=== PATIENT | male | born 1970 | race Caucasian/White ===

== ENCOUNTER 2016-10-22 04:27 | Day surgery (SDC) | payer BC ==
[2016-10-19 18:36] LABS: HEMATOCRIT 41.2 % (40.0-51.0); HEMOGLOBIN 14.4 g/dL (13.6-17.8)
--- NOTE | ~2016-10-22 | OP ---
Record Of Operation [facility] [address] [place]. [address] NAME: TALIA GOETZ : 66 STATUS : [facility]#: [id number] AGE: 46 ADM/REG DATE : 10/22/16 MR#: [id number] REPORT SERV DATE: 10/25/16 DICTATED BY: PHUC HACKETT DATE: 10/25/16 REPORT STATUS : Draft TRANSCRIBED BY: MODL DATE: 10/25/16 DATE OF PROCEDURE: 10/22/2016 PREOPERATIVE DIAGNOSIS: Chronically inflamed infected sebaceous cyst of the back. POSTOPERATIVE DIAGNOSIS: Chronically inflamed infected sebaceous cyst of the back. PROCEDURE PERFORMED: Excision of greater than 5 cm chronically inflamed, tender sebaceous cyst of the back with intermediate closure. SURGEON: Phuc Hackett M.D. ANESTHESIA: General. ESTIMATED BLOOD LOSS: Minimal. SPECIMENS REMOVED: Skin lesion. BRIEF HISTORY: Mr. Goetz is a 46-year-old gentleman, who has had problems with recurring infected sebaceous cyst of the back. He has been treated with antibiotics, but the area is still exquisitely tender and he wants have that area completely excised, and he presents for that purpose. FINDINGS AT THE TIME OF PROCEDURE: Grossly resembled a ruptured epidermoid inclusion cyst. DETAILS OF PROCEDURE: Following informed consent, the area was marked and identified the proper site and location by myself on the patient. The patient was then transferred to operative suite and after successful induction of anesthesia, he was positioned in left lateral decubitus position. An elliptical skin incision encompassing infected sebaceous cyst and grossly normal margins performed. We did full-thickness excision encompassing subcutaneous fatty tissue all the way to the muscular fascia. We did a wide excision of this to ensure every bit of the capsule was excised. The specimen was submitted for path. The wound was copiously irrigated. Hemostasis was secured with cautery. Skin edges reapproximated using intermediate closure of 3-0 Vicryl for deep subdermal approximation and 3-0 Prolene for superficial approximation. At the completion of the case, all sponge and needle counts were correct. The patient was extubated and transferred to recovery room in satisfactory condition having suffered no apparent perioperative complications. OSWALDO/EL Phuc Hackett M.D. / [id number] Record Of Operation [place] [id number] [place] [id number] NAME: TALIA GOETZ : 66 STATUS : [facility] PAT#: [id number] AGE: 46 ADM/REG DATE : 10/22/16 MR#: [id number] REPORT SERV DATE: 10/25/16 DICTATED BY: PHUC HACKETT DATE: 10/25/16 REPORT STATUS : Draft TRANSCRIBED BY: MODL DATE: 10/25/16 CC: Vicki Baxter PA-C
[~2016-10-22 04:27] MED LIST: CLARIT10 PO
== END 2016-10-22 09:38 | disposition home or self-care (01) ==
LOC: SDC 04:27
PROVIDERS: Surgery
PROC: 0JB70ZZ Excision of Back Subcutaneous Tissue and Fascia, Open Approach (ICD-10-PCS; 2016-10-22)
PROC: 0JQ70ZZ Repair Back Subcutaneous Tissue and Fascia, Open Approach (ICD-10-PCS; principal; 2016-10-22 05:45)
DX: L72.0 Epidermal cyst (principal); E66.9 Obesity, unspecified; G47.33 Obstructive sleep apnea (adult) (pediatric); F17.200 Nicotine dependence, unspecified, uncomplicated; Z99.89 Dependence on other enabling machines and devices; Z68.30 Body mass index [BMI] 30.0-30.9, adult
CPT/HCPCS: 85014; 85018; 88304; J0690; J1885; J2250; J2405; J2710; J3010